=== PATIENT | male | born 1955 | race Caucasian/White ===

== ENCOUNTER → 2016-07-23 | Outpatient (CLI) | payer MEDICARE, MEDICAID ==
[~2016-07-23] MED LIST: ACET-2321 PO; CARB-47 PO; CARB1TAB20 PO; CARB1TAB42 PO; DEXT15DR5 OP; FURO40TA70 PO; GABA-305 PO; GABA-338 PO; GUAI120015 PO; LACT10SO PO; LISI-625 PO; MAGN400O4 PO; MELA3TAB30 PO; MENT118G TOP; METO-64 PO; MORP30TA95 PO; OXYC-541 PO; PANT40TA27 PO; PARO40TA72 PO; POLY17PO6 PO; POTA10CA37 PO; ROPI0.5T5 PO; SUCR1TAB PO; TRIA15CR4 TOP
[2016-07-23 06:30] LABS: ANION GAP 11 MEQ/L (5-15); BUN/CREATININE RATIO 13 RATIO (6-26); CALCIUM 9.5 MG/DL (8.4-10.2); CHLORIDE 102 MEQ/L (98-107); CO2 - CARBON DIOXIDE 33 MEQ/L (22-30); CREATININE 0.8 MG/DL (0.8-1.5); GLOMERULAR FILTRATION RATE 99; GLUCOSE 114 MG/DL (75-110); POTASSIUM 3.6 MEQ/L (3.6-5); SODIUM 146 MEQ/L (134-144)
== END ==
LOC: LABNH.BH 06:12
PROVIDERS: ATTEND Family Medicine
DX: E55.9 Vitamin D deficiency, unspecified (principal)
CPT/HCPCS: 36415; 80048; P9604

== ENCOUNTER → 2016-08-19 | Outpatient (CLI) | payer MEDICARE, MEDICAID ==
[2016-08-19 08:26] LABS: ANION GAP 12 MEQ/L (5-15); BUN/CREATININE RATIO 15 RATIO (6-26); CALCIUM 9.7 MG/DL (8.4-10.2); CHLORIDE 102 MEQ/L (98-107); CO2 - CARBON DIOXIDE 31 MEQ/L (22-30); CREATININE 0.8 MG/DL (0.8-1.5); GLOMERULAR FILTRATION RATE 99; GLUCOSE 103 MG/DL (75-110); POTASSIUM 3.9 MEQ/L (3.6-5); SODIUM 145 MEQ/L (134-144)
== END ==
LOC: LABNH.BH 00:17
PROVIDERS: ATTEND Family Medicine
DX: R60.9 Edema, unspecified (principal)
CPT/HCPCS: 36415; 80048; P9604

== ENCOUNTER → 2016-08-26 | Outpatient (CLI) | payer MEDICARE, MEDICAID | LOC: LABNH.BH 05:51 | PROVIDERS: ATTEND Family Medicine | DX: E55.9 Vitamin D deficiency, unspecified (principal) | CPT/HCPCS: 36415; 82306; P9604 ==